=== PATIENT | female | born 1950 | race Caucasian/White ===

== ENCOUNTER 2021-09-01 15:44 | Emergency (ER) | payer OTHER ==
[2021-09-01] MEDS ORDERED: NA CHLORIDE 0.9% 250 ML ONE (16:28)
[2021-09-01] MEDS ORDERED: CASIRIVIMAB/IMDEVIMAB 10 ML VIAL ONE (16:28)
[2021-09-01] MEDS ORDERED: BENZONATATE 100 MG CAP PO ONE (16:42)
--- NOTE | 2021-09-01 18:21 | ER ---
Nurse's Notes [facility] Name: Isa Harden Age: 71 yrs Sex: Female : 1950 Arrival Date: 09/01/2021 Time: 15:46 Bed DIS5 Private MD: Diagnosis: Coronavirus infection, unspecified Presentation: 09/01 16:26 Chief complaint: Patient states: COVID+ home test, symptoms started 2 days ago, iw was COVID+. Coronavirus screen: Client reports previous positive COVID test result. Ebola Screen: Patient negative for fever greater than or equal to 101.5 degrees Fahrenheit, and additional compatible Ebola Virus Disease symptoms Patient denies exposure to infectious person. Patient denies travel to an Ebola-affected area in the 21 days before illness onset. No symptoms or risks identified at this time. Initial Sepsis Screen: Does the patient meet any 2 criteria? No. Patient's initial sepsis screen is negative. Does the patient have a suspected source of infection? No. Patient's initial sepsis screen is negative. Risk Assessment: Do you want to hurt yourself or someone else? Patient reports no desire to harm self or others. Onset of symptoms was August 30, 2021. 16:26 Method Of Arrival: Ambulatory iw 16:26 Acuity: CHARMAINE 3 iw Historical: - Allergies: 16:58 No Known Allergies; ld1 - Home Meds: 16:58 None [Active]; ld1 - PMHx: 16:58 None; ld1 - PSHx: 16:58 None; ld1 - Immunization history:: Adult Immunizations not up to date, Client reports having NOT received the Covid vaccine. - Social history:: Smoking status: Patient denies any tobacco usage or history of. Patient/guardian denies using alcohol. Screenin:58 Abuse screen: Denies threats or abuse. Denies injuries from another. Nutritional ld1 screening: No deficits noted. Tuberculosis screening: No symptoms or risk factors identified. Fall Risk None identified. Assessment: 16:57 General: Appears in no apparent distress. comfortable, Behavior is calm, cooperative, ld1 appropriate for age. Pain: Denies pain. Neuro: Level of Consciousness is awake, alert, obeys commands, Oriented to person, place, time, situation, Appropriate for age. Cardiovascular: Capillary refill < 3 seconds Patient's skin is warm and dry. Respiratory: Airway is patent Respiratory effort is even, unlabored, Respiratory pattern is regular, symmetrical. GI: Abdomen is flat, non-distended. : No signs and/or symptoms were reported regarding the genitourinary system. EENT: No signs and/or symptoms were reported regarding the EENT system. Derm: No signs and/or symptoms reported regarding the dermatologic system. Musculoskeletal: No signs and/or symptoms reported regarding the musculoskeletal system. 18:08 Reassessment: Patient appears in no apparent distress at this time. No changes from ld1 previously documented assessment. Patient and/or family updated on plan of care and expected duration. Pain level reassessed. Patient is alert, oriented x 3, equal unlabored respirations, skin warm/dry/pink. Vital Signs: 16:26 Temp 99.4(TE); iw 16:58 BP 156 / 88; Pulse 93; Resp 18; Pulse Ox 96% on R/A; Weight 74.84 kg; Height 5 ft. 6 ld1 in. (167.64 cm); Pain 0/10; 18:08 BP 142 / 79; Pulse 89; Resp 18; Pulse Ox 97% on R/A; ld1 16:58 Body Mass Index 26.63 (74.84 kg, 167.64 cm) ld1 ED Course: 15:46 Patient arrived in ED. as 16:03 Kesha Collins F[facility]-C [facility]. kb 16:03 Merlin Westbrook MD is Attending Physician. kb 16:26 Audra Noel, GIOVANI is Primary Nurse. ld1 16:26 Inserted saline lock: 20 gauge in right antecubital area, using aseptic technique. ld1 Missed attempt(s): 18 gauge in right antecubital area. 16:27 Triage completed. iw 16:58 No provider procedures requiring assistance completed. ld1 16:58 Patient has correct armband on for positive identification. Placed in gown. Bed in low ld1 position. Call light in reach. Side rails up X2. Pulse ox on. NIBP on. Door closed. Noise minimized. Warm blanket given. 18:53 IV discontinued, intact, bleeding controlled, No redness/swelling at site. ld1 18:53 Arm band placed on right wrist. ld1 Administered Medications: 16:55 Drug: REGEN-COV Dose Pack 120 mg/mL-120 mg/mL (EUA) 1 application Route: IV; Rate: ld1 calculated rate; Site: right antecubital; 18:08 Follow up: Response: No adverse reaction; IV Status: Completed infusion; IV Intake: ld1 260ml 16:55 Drug: Tessalon Perle (benzonatate) 100 mg Route: PO; ld1 Intake: 18:08 IV: 260ml; Total: 260ml. ld1 Outcome: 18:20 Discharge ordered by MD. walker 18:52 Discharged to home ambulatory. ld1 18:52 Condition: stable 18:52 Discharge instructions given to patient, Instructed on discharge instructions, follow up and referral plans. medication usage, Demonstrated understanding of instructions, follow-up care, medications, Prescriptions given X 1. 18:53 Patient left the ED. ld1 Signatures: Kesha Collins, PROFESSIONAL [employer]CC[employer]ER-C PROFESSIONAL [employer]ER PLAYER-Yael Hill Irene, RN RN iw Audra Noel RN RN ld1
--- NOTE | 2021-09-01 18:21 | EDPHYS ---
Physician Documentation [facility] Name: Isa Harden Age: 71 yrs Sex: Female : 1950 Arrival Date: 09/01/2021 Time: 15:46 Bed DIS5 Private MD: ED Physician Merlin Westbrook HPI: 09/01 16:58 This 71 yrs old Female presents to ER via Ambulatory with complaints of covid+. kb 16:58 The patient or guardian reports cough, that is intermittent, described as moderate, flu kb symptoms, low-grade fever. Onset: The symptoms/episode began/occurred 2 day(s) ago. Severity of symptoms: At their worst the symptoms were mild, in the emergency department the symptoms are unchanged. Modifying factors: The symptoms are alleviated by nothing, the symptoms are aggravated by nothing. Associated signs and symptoms: Pertinent positives: fever, sore throat, Pertinent negatives: chest pain, diarrhea, ear ache, nausea, rhinorrhea, vomiting. The patient has not experienced similar symptoms in the past. The patient has not recently seen a physician. Pt reports cough, sore throat and fever for 2 days, tested positive for covid this morning so came in today for monoclonal antibody infusion. Historical: - Allergies: 16:58 No Known Allergies; ld1 - Home Meds: 16:58 None [Active]; ld1 - PMHx: 16:58 None; ld1 - PSHx: 16:58 None; ld1 - Immunization history:: Adult Immunizations not up to date, Client reports having NOT received the Covid vaccine. - Social history:: Smoking status: Patient denies any tobacco usage or history of. Patient/guardian denies using alcohol. ROS: 16:57 Cardiovascular: Negative for chest pain, palpitations, and edema. kb 16:57 Constitutional: Positive for fever. 16:57 ENT: Positive for sore throat. 16:57 Respiratory: Positive for cough. 16:57 All other systems are negative. Exam: 16:57 Constitutional: This is a well developed, well nourished patient who is awake, alert, kb and in no acute distress. Head/Face: Normocephalic, atraumatic. ENT: Moist Mucous membranes Respiratory: Respirations even and unlabored. No increased work of breathing, no retractions or nasal flaring. Skin: Warm, dry with normal turgor. Normal color. MS/ Extremity: Pulses equal, no cyanosis. Neurovascular intact. Full, normal range of motion. Neuro: Awake and alert, GCS 15, oriented to person, place, time, and situation. Moves all extremities. Normal gait. Psych: Awake, alert, with orientation to person, place and time. Behavior, mood, and affect are within normal limits. Vital Signs: 16:26 Temp 99.4(TE); iw 16:58 BP 156 / 88; Pulse 93; Resp 18; Pulse Ox 96% on R/A; Weight 74.84 kg; Height 5 ft. 6 ld1 in. (167.64 cm); Pain 0/10; 18:08 BP 142 / 79; Pulse 89; Resp 18; Pulse Ox 97% on R/A; ld1 16:58 Body Mass Index 26.63 (74.84 kg, 167.64 cm) ld1 MDM: 16:04 Patient medically screened. kb 16:57 Data reviewed: vital signs, nurses notes. Data interpreted: Pulse oximetry: on room air kb is 100 %. Interpretation: normal. 17:30 Counseling: I had a detailed discussion with the patient and/or guardian regarding: the kb historical points, exam findings, and any diagnostic results supporting the discharge/admit diagnosis, the need for outpatient follow up, a family practitioner, to return to the emergency department if symptoms worsen or persist or if there are any questions or concerns that arise at home. Administered Medications: 16:55 Drug: REGEN-COV Dose Pack 120 mg/mL-120 mg/mL (EUA) 1 application Route: IV; Rate: ld1 calculated rate; Site: right antecubital; 18:08 Follow up: Response: No adverse reaction; IV Status: Completed infusion; IV Intake: ld1 260ml 16:55 Drug: Tessalon Perle (benzonatate) 100 mg Route: PO; ld1 Disposition: 09/02 09:21 Co-signature as Attending Physician, Merlin Westbrook MD I agree with the assessment and sp3 plan of care. Disposition Summary: 09/01/21 18:20 Discharge Ordered Location: Home kb Condition: Stable kb Diagnosis - Coronavirus infection, unspecified kb Followup: kb - With: Emergency Department - When: As needed - Reason: Worsening of condition Followup: kb - With: Private Physician - When: 2 - 3 days - Reason: Recheck today's complaints, Continuance of care, Re-evaluation by your physician Discharge Instructions: - Discharge Summary Sheet kb - COVID-19 kb Forms: - Medication Reconciliation Form kb - Thank You Letter kb - Antibiotic Education kb - Prescription Opioid Use kb Prescriptions: - Tessalon Perles 100 mg Oral Capsule - take 1 capsule by ORAL route every 8 hours As needed; 15 capsule; Refills: 0, kb Product Selection Permitted Signatures: Kesha Collins FNP-C FNP-Ckb Dibbern, Lauren, RN RN ld1 Merlin Westbrook MD MD sp3
[2021-09-01 18:59] VITALS: TEMP 99.4
[2021-09-01 19:02] VITALS: BP 142/79; O2SAT 97
== END 2021-09-01 18:53 | disposition home or self-care (01) ==
LOC: ER 15:44
DX: U07.1 COVID-19 (principal)
CPT/HCPCS: 96365; 99284; J7050